=== PATIENT | female | born 1955 | race Caucasian/White ===

== ENCOUNTER 2019-04-06 10:17 | Day surgery (SDC) | payer MEDICARE ==
--- NOTE | 2019-04-05 05:30 | PREOPHP ---
DATE OF ADMISSION: 04/06/2019 HISTORY OF PRESENT ILLNESS: Ms. Clari Garvin is a 63-year-old 12, para 8 menopause since 2 005 scheduled for a LEEP secondary to cervical dysplasia, SPENCER 2. MEDICAL HISTORY: Hypertension, cholesterol. CURRENT MEDICATIONS: Lisinopril. PAST SURGICAL HISTORY: Bilateral tubal ligation. OBSTETRICAL HISTORY: Times 8 vaginal deliveries, x3 termination of , x1 missed AB. GYNECOLOGIC HISTORY: [age]/men[age], not sexually active. History of HPV. SOCIAL HISTORY: Denies any smoking, drugs or alcohol. FAMILY HISTORY: None. REVIEW OF SYSTEMS: All within normal except history of present illness. PHYSICAL EXAMINATION: HEENT: Within normal. LUNGS: CTA bilateral. CARDIOVASCULAR: S1, S2, regular rhythm. ABDOMEN: Soft, nontender, negative distention, negative mass. EXTREMITIES: Negative edema. No calf tenderness. PELVIC: Normal external genitalia. Cervix negative CMT, negative lesions. Adnexa negative mass, no ntender bilateral. Fundus within normal limits with a positive grade III cystocele. LABORATORY DATA: Pathology report on 11/13/2018: Cervix focus of high-grade squamous intraepithelia l lesion, SPENCER 2. ASSESSMENT: Cervical dysplasia, SPENCER 2, asymptomatic cystocele. PLAN: Schedule for loop electrocautery excision procedure. Risks, benefits and alternatives explain ed. All questions were answered. Dictated By: MANNY GARCIA/MENDEZ Conf#: [id number] DID#: [id number]
[2019-04-06] VITALS (11 sets, daily range): BP systolic 132–165; BP diastolic 69–85; PULSE 73–80; RESP 14–18; Ht 165.1 cm; Wt 80.4 kg
[~2019-04-06] VITALS: Ht 165.1 cm; Wt 80.4 kg
[~2019-04-06 10:17] MED LIST: AMLO-147 PO; CALC1TAB93 PO; FOLI-49 PO; GABA300C16 PO; METF500T24 PO; SIMV40TA2 PO
[2019-04-06] MEDS ORDERED: DEXAMETHASONE 4 MG/ML 5 ML INJ ONE (11:19)
[2019-04-06] MEDS ORDERED: DESFLURANE 15 MIN ONE (11:19)
[2019-04-06] MEDS ORDERED: SUCCINYLCHOLINE CHLORIDE 100 MG/5 ML SYG IV ONE (11:19)
[2019-04-06] MEDS ORDERED: PROPOFOL 20 ML ONE (11:19)
[2019-04-06] MEDS ORDERED: EPHEDrine 25 MG/5 ML SYG ONE (11:19)
[2019-04-06] MEDS ORDERED: LIDOCAINE 100 MG SYRINGE ONE (11:19)
[2019-04-06] MEDS ORDERED: CEFAZOLIN 1 GM INJ ONE (11:19)
[2019-04-06] MEDS ORDERED: ONDANSETRON 4 MG INJ ONE (11:19)
--- NOTE | 2019-04-06 11:27 | PREAC ---
Date/Time of Note Date/Time of Note DATE: 04/06/19 TIME: 11:26 Anesthesia Eval and Record Evaluation Time Pre-Procedure Interview DATE: 04/06/19 TIME: 11:26 Age 63 Sex female NPO: 6 hrs (pt drank water at 0800) Preoperative diagnosis SPENCER Planned procedure LEEP procedure Past Medical History Past Medical History: Includes Cardio: HTN, Dyslipidemia Endo: Diabetes Surgery & Anesthesia Issues No known issue Meds Anticoagulation: No Beta Hui within 24 hr: No Reason Beta Hui not given: Pt. not on B-Hui Reported Medications Simvastatin* (Zocor*) 40 Mg Tablet, 40 MG PO QHS, #30 TAB 04/06/19 Amlodipine Besylate* (Amlodipine Besylate*) 10 Mg Tablet, 10 MG PO DAILY, #30 TAB 04/06/19 Calcium Carbonate/Vitamin D3 (OYSTER SHELL 500 MG + VIT D TB) 1 Each Tablet, 1 EACH PO DAILY, TAB 04/06/19 Metformin Hcl* (Metformin Hcl*) 500 Mg Tablet, 500 MG PO WITH BREAKFAST DINNE, #60 TAB 04/06/19 Gabapentin* (Gabapentin*) 300 Mg Capsule, 300 MG PO TID, #90 CAP 04/06/19 Folic Acid* (Folic Acid*) 1 Mg Tablet, 1 MG PO DAILY, TAB 04/06/19 Meds reviewed: Yes Allergies Coded Allergies: No Known Allergy (Unverified , 04/06/19) Allergies Reviewed: Yes Labs/Studies Labs Reviewed: Reviewed by anesthesiologist test: N/A Studies: ECG, CXR Pre-procedure Exam Airway: Adequate mouth opening Mallampati: Mallampati II Teeth: Normal Lung: Normal Heart: Normal ASA Physical Status ASA physical status: 2 Emergency: None Planned Anesthetic General/MAC: ETT Pre-operative Attestations Prior to commencing anesthesia and surgery, the patient was re-evaluated, there was verification of: *The patient's identity *The results of appropriate recent lab work and preoperative vital signs *The above evaluation not changing prior to induction *Anesthetic plan, risk benefits, alternative and complications discussed with patient/family; questions answered; patient/family understands, accepts and wishes to proceed. LAUREL WALTON Apr 06, 2019 11:27
[2019-04-06] MEDS ORDERED: FENTAnyl 50 MCG/ML VIAL ONE (11:30)
[2019-04-06] MEDS ORDERED: HYDROmorphONE 1 MG/5 ML IV SYRINGE IV PRN ×2 (12:30)
[2019-04-06] MEDS ORDERED: METOCLOPRAMIDE 10 MG INJ IV PRN (12:30)
[2019-04-06] MEDS ORDERED: ONDANSETRON 4 MG INJ IV PRN (12:30)
[2019-04-06] MEDS ORDERED: FENTAnyl 50 MCG/ML VIAL IV PRN ×2 (12:30)
[2019-04-06] MEDS ORDERED: LABETALOL HCL 20MG INJ IV PRN (12:30)
[2019-04-06] MEDS ORDERED: MEPERIDINE 25 MG INJ IV PRN (12:30)
[2019-04-06] MEDS ORDERED: hydrALAzine 20 MG INJ IV PRN (12:30)
--- NOTE | 2019-04-06 12:40 | HPN ---
Date/Time of Note Date/Time of Note DATE: 04/06/19 TIME: 12:39 Interval H&P Admission Note Pt. seen H&P reviewed: No system changes MANNY VANEGAS MD Apr 06, 2019 12:40
--- NOTE | 2019-04-06 14:07 | OPPN ---
Date/Time of Note Date/Time of Note DATE: 04/06/19 TIME: 14:06 Operative Report Planned Procedure Procedure date Apr 06, 2019 Procedure(s) LEEP Performed by see signature line Last Model Maker: MANNY VANEGAS MD 2nd Last Model Maker none Pre-procedure diagnosis cervical dysplasia [id number] Anesthesia Type: Alzry7s general Post-Procedure Post-procedure diagnosis same Findings normal no lesions Estimated Blood Loss: minimal Specimen(s) cervix top hat Grafts/Implant(s) none Complication(s) none MANNY VANEGAS MD Apr 06, 2019 14:07
--- NOTE | 2019-04-06 14:08 | PD.PPDC ---
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
--- NOTE | 2019-04-06 14:17 | PAC ---
Date/Time of Note Date/Time of Note DATE: 04/06/19 TIME: 14:16 Post-Anesthesia Notes Post-Anesthesia Note Last documented vital signs Vital Signs Date Temp Pulse Resp B/P (MAP) Pulse Ox O2 O2 Flow FiO2 Time Delivery Rate 04/06/19 97.6 78 16 165/79 97 Room Air 12:42 (107) Activity: WNL Respiratory function: WNL Cardiovascular function: WNL Mental status: Baseline Pain reasonably controlled: Yes Hydration appropriate: Yes Nausea/Vomiting absent: Yes LAUREL WALTON Apr 06, 2019 14:16
--- NOTE | 2019-04-07 14:32 | OPR ---
DATE OF OPERATION: 04/06/2019 PREOPERATIVE DIAGNOSIS: Cervical dysplasia. POSTOPERATIVE DIAGNOSIS: Cervical dysplasia. OPERATION PERFORMED: Loop electrocautery excision procedure known as LEEP. SURGEON: Manny Hayward MD ANESTHESIA: General. ESTIMATED BLOOD LOSS: Minimal. PATHOLOGY: Portion of the cervix. FINDINGS: Positive grade III cystocele. Bimanual examination revealed normal sized midline uterus w ith no adnexal masses palpated, cervix did not appear to have any gross masses or lesions. DESCRIPTION OF PROCEDURE: After explaining the risks, benefits and alternatives to the patient and c onsent signed in chart, the patient was taken to the OR where patient was placed under anesthesia wit hout difficulty. The patient was then draped in a usual sterile fashion and placed in a dorsal litho miryam position. Preoperative bimanual exam revealed findings noted above. At this time, a large Grav es' speculum was placed in the patient's vagina and a large loop electrode was used to remove the top portion of the cervix and sent to pathology. The bed of the excised cervix tissue along the cervix was cauterized using a roller ball. Hemostasis was noted. All instruments were removed from the pat ient's vagina. The patient tolerated procedure well without any complications and taken to recovery room in stable condition. Dictated By: MANNY GARCIA/MENDEZ Conf#: [id number] DID#: [id number]
== END 2019-04-06 15:35 | disposition home or self-care (01) ==
LOC: SDS 10:17
PROVIDERS: ATTEND Obstetrics & Gynecology
DX: D06.9 Carcinoma in situ of cervix, unspecified (principal)
CPT/HCPCS: 57522; 80048; 82962; 85025; 86850; 86900; 86901; 88305; J0690; J1100; J2001; J2405; J3010